=== PATIENT | male | born 1970 | race African-American/Black ===

== ENCOUNTER 2021-11-21 07:06 | Emergency (ER) | payer OTHER ==
[2021-11-21] MEDS ORDERED: HYDROCODON-ACE1 EAC2 PO ×2 (07:31→07:48)
== END 2021-11-21 08:04 | disposition home or self-care (01) ==
LOC: ER1 07:06
DX: B02.9 Zoster without complications (principal); F17.200 Nicotine dependence, unspecified, uncomplicated
CPT/HCPCS: 99282